=== PATIENT | female | born 1950 | race Hispanic/Latino ===

== ENCOUNTER 2018-03-30 10:29 | Outpatient (CLI) | payer MEDICARE, MEDICAID | END 2018-03-30 10:30 | disposition home or self-care (01) | LOC: BICMAMMO 10:29 | PROVIDERS: ATTEND Family Medicine | DX: Z12.31 Encounter for screening mammogram for malignant neoplasm of breast (principal) | CPT/HCPCS: 77063; 77067 ==

== ENCOUNTER 2018-07-07 13:41 | Outpatient (CLI) | payer MEDICARE, MEDICAID ==
--- NOTE | 2018-07-07 15:20 | ULT ---
BILATERAL RENAL ULTRASOUND: Date: 07/07/18 HISTORY: Chronic hypokalemia. COMPARISON: None. TECHNIQUE: Sagittal and transverse imaging of the kidneys is performed. FINDINGS: Limited evaluation of the cortices. Bilaterally, no hydronephrosis. Right kidney measures 5.2 x 4.5 x 9.7 cm. Left kidney measures 6.2 x 5.1 x 9.7 cm. Anechoic focus in mid pole of right kidney measures 3.1 x 3.3 x 3.1 cm. Anechoic focus in upper pole of left kidney measures 1.3 x 1.5 x 1.3 cm. Urinary bladder is unremarkable. IMPRESSION: 1. No evidence of hydronephrosis. 2. Bilateral renal cortical cysts. POS: ALEX[facility]
== END 2018-07-07 13:42 | disposition home or self-care (01) ==
LOC: BICULT 13:41
PROVIDERS: ATTEND Family Medicine
DX: E87.6 Hypokalemia (principal); N28.1 Cyst of kidney, acquired
CPT/HCPCS: 76770

== ENCOUNTER 2019-04-27 14:26 | Outpatient (CLI) | payer MEDICARE, MEDICAID ==
--- NOTE | 2019-04-27 14:58 | MMO ---
Bilateral MAMMO Bilat Screen [facility]. CLINICAL HISTORY: Patient is 68 years old and is seen for screening. The patient has no family history of breast cancer. The patient has no personal history of cancer. VIEWS: The views performed were: bilateral craniocaudal with tomosynthesis and bilateral mediolateral oblique with tomosynthesis. FILMS COMPARED: The present examination has been compared to prior imaging studies performed at [facility] on 07/02/2009, 04/13/2012, 09/25/2015 and 03/30/2018. MAMMOGRAM FINDINGS: There are scattered fibroglandular densities. There are no suspicious masses, suspicious calcifications, or new areas of architectural distortion. IMPRESSION: THERE IS NO MAMMOGRAPHIC EVIDENCE OF MALIGNANCY. A ROUTINE FOLLOW-UP MAMMOGRAM IN 1 YEAR IS RECOMMENDED. THE RESULTS OF THIS EXAM WERE SENT TO THE PATIENT. ACR BI-RADS Category 1 - Negative MAMMOGRAPHY NOTE: 1. A negative mammogram report should not delay a biopsy if a dominant of clinically suspicious mass is present. 2. Approximately 10% to 15% of breast cancers are not detected by mammography. 3. Adenosis and dense breasts may obscure an underlying neoplasm. Reported by: LOUIS SOUSA MD Electonically Signed: [id number]
--- NOTE | 2019-04-27 17:18 | BD ---
BONE DENSITOMETRY: Date: 04/27/19 HISTORY: Postmenopausal osteoporosis screening. FINDINGS: Lumbar Spine: BMD (g/cm2) L1 0.794 T-Score: -1.8 L2 0.783 T-Score: -2.2 L3 0.715 T-Score: -3.4 L4 0.751 T-Score: -2.8 Total 0.757 T-Score: -2.6 Left Femoral Neck: 0.569 T-Score: -2.5 Total Femur: 0.663 T-Score: -2.3 IMPRESSION: Bone mineral density of the lumbar spine and femoral neck both indicate osteoporosis. POS: [facility]
== END 2019-04-27 14:27 | disposition home or self-care (01) ==
LOC: BICMAMMO 14:26
PROVIDERS: ATTEND Family Medicine
DX: Z12.31 Encounter for screening mammogram for malignant neoplasm of breast (principal); M81.0 Age-related osteoporosis without current pathological fracture
CPT/HCPCS: 77063; 77067; 77080

== ENCOUNTER 2020-06-20 15:26 | Outpatient (CLI) | payer MEDICARE, MEDICAID ==
--- NOTE | 2020-06-20 15:43 | RAD ---
EXAM: Chest 2 views: HISTORY: Covid pneumonia COMPARISON: 01/19/2020 FINDINGS: There is a normal-sized cardiomediastinal silhouette. Diffuse increased interstitial markings are pr esent. Atherosclerotic calcifications are seen in the aorta. There is no evidence of consolidation, mass, or pleural effusion. No acute osseous abnormality. IMPRESSION: No evidence of acute cardiopulmonary disease
== END 2020-06-20 15:27 | disposition home or self-care (01) ==
LOC: BICRAD 15:26
PROVIDERS: ATTEND Family Medicine
DX: J12.9 Viral pneumonia, unspecified (principal)
CPT/HCPCS: 71046

== ENCOUNTER 2020-07-17 13:23 | Outpatient (CLI) | payer MEDICARE, MEDICAID ==
--- NOTE | 2020-07-17 14:53 | MMO ---
Bilateral MAMMO Bilat Screen [facility]. CLINICAL HISTORY: Patient is 69 years old and is seen for screening. The patient has no family history of breast cancer. The patient has no personal history of cancer. VIEWS: The views performed were: bilateral craniocaudal with tomosynthesis and bilateral mediolateral oblique with tomosynthesis. FILMS COMPARED: The present examination has been compared to prior imaging studies performed at [facility] on 04/13/2012, 09/25/2015, 03/30/2018 and 04/27/2019. This study has been interpreted with the assistance of computer-aided detection. MAMMOGRAM FINDINGS: There are scattered fibroglandular densities. There are no suspicious masses, suspicious calcifications, or new areas of architectural distortion. IMPRESSION: THERE IS NO MAMMOGRAPHIC EVIDENCE OF MALIGNANCY. A ROUTINE FOLLOW-UP MAMMOGRAM IN 1 YEAR IS RECOMMENDED. THE RESULTS OF THIS EXAM WERE SENT TO THE PATIENT. ACR BI-RADS Category 1 - Negative MAMMOGRAPHY NOTE: 1. A negative mammogram report should not delay a biopsy if a dominant of clinically suspicious mass is present. 2. Approximately 10% to 15% of breast cancers are not detected by mammography. 3. Adenosis and dense breasts may obscure an underlying neoplasm. Reported by: SILVANO ZUNIGA MD Electonically Signed: [id number]
== END 2020-07-17 13:24 | disposition home or self-care (01) ==
LOC: BICMAMMO 13:23
PROVIDERS: ATTEND Family Medicine
DX: Z12.31 Encounter for screening mammogram for malignant neoplasm of breast (principal)
CPT/HCPCS: 77063; 77067

== ENCOUNTER 2020-12-27 16:21 | Outpatient (CLI) | payer MEDICARE, MEDICAID | END 2020-12-27 16:22 | disposition home or self-care (01) | LOC: BICRAD 16:21 | PROVIDERS: ATTEND Family Medicine | DX: R05 Cough (principal) | CPT/HCPCS: 71046 ==

== ENCOUNTER 2021-08-06 14:47 | Outpatient (CLI) | payer MEDICARE, MEDICAID | END 2021-08-06 14:48 | disposition home or self-care (01) | LOC: BICMAMMO 14:47 | PROVIDERS: ATTEND Family Medicine | DX: Z12.31 Encounter for screening mammogram for malignant neoplasm of breast (principal); Z13.820 Encounter for screening for osteoporosis; M81.0 Age-related osteoporosis without current pathological fracture | CPT/HCPCS: 77063; 77067; 77080 ==

== ENCOUNTER 2022-10-15 08:57 | Outpatient (CLI) | payer MEDICARE, MEDICAID | END 2022-10-15 08:58 | disposition home or self-care (01) | LOC: BICRAD 08:57 | PROVIDERS: ATTEND Family Medicine | DX: M54.59 Other low back pain (principal); W19.XXXA Unspecified fall, initial encounter | CPT/HCPCS: 72100 ==

== ENCOUNTER 2023-10-12 12:53 | Outpatient (CLI) | payer OTHER, MEDICAID | END 2023-10-12 12:54 | disposition home or self-care (01) | LOC: BICMAMMO 12:53 | PROVIDERS: ATTEND Family Medicine | DX: Z13.820 Encounter for screening for osteoporosis (principal); M81.0 Age-related osteoporosis without current pathological fracture; N95.9 Unspecified menopausal and perimenopausal disorder; M85.88 Other specified disorders of bone density and structure, other site | CPT/HCPCS: 77080 ==

== ENCOUNTER 2024-08-04 11:22 | Outpatient (CLI) | payer OTHER, MEDICAID | END 2024-08-04 11:23 | disposition home or self-care (01) | LOC: BICRAD 11:22 | PROVIDERS: ATTEND Family Medicine | DX: U09.9 Post COVID-19 condition, unspecified (principal) | CPT/HCPCS: 71046 ==

== ENCOUNTER 2024-09-15 14:04 | Outpatient (CLI) | payer OTHER, MEDICAID | END 2024-09-15 14:05 | disposition home or self-care (01) | LOC: BICRAD 14:04 | PROVIDERS: ATTEND Family Medicine | DX: M54.6 Pain in thoracic spine (principal); M54.50 Low back pain, unspecified; M47.814 Spondylosis without myelopathy or radiculopathy, thoracic region | CPT/HCPCS: 72070; 72100 ==

== ENCOUNTER 2024-11-23 13:18 | Outpatient (CLI) | payer OTHER, MEDICAID | END 2024-11-23 13:19 | disposition home or self-care (01) | LOC: BICMAMMO 13:18 | PROVIDERS: ATTEND Family Medicine | DX: M81.0 Age-related osteoporosis without current pathological fracture (principal); M85.88 Other specified disorders of bone density and structure, other site | CPT/HCPCS: 77080 ==

== ENCOUNTER 2025-05-22 09:38 | Emergency (ER) | payer OTHER, MEDICAID ==
[2025-05-22] MEDS ORDERED: Ketorolac Tromethamine 30 MG (1 mL) VIAL ONE (10:17)
[2025-05-22 10:38] LABS: #Basophils 0.09 10x3/uL (0.0-0.2); #Eosinophils 0.14 10x3/uL (0.0-0.7); #Monocytes 0.93 10x3/uL (0.11-0.59); #Neutrophils 5.65 10x3/uL (1.40-6.50); %Basophils 1.0 % (0.0-1.0); %Eosinophils 1.5 % (0.0-10.0); %Lymphocytes 25.6 % (21.0-51.0); %Monocytes 10.1 % (0.0-10.0); %Neutrophils 61.0 % (42.0-75.0); Hematocrit 45.1 % (36.0-47.0); Hemoglobin 13.9 g/dL (12.0-16.0); Mean Corpuscular Hemoglobin 26.8 pg (27.0-31.0); Mean Corpuscular Volume 87.1 fL (78.0-98.0); Platelet Count 289 10x3/uL (130-400); Red Blood Cell (RBC) Count 5.18 mill/uL (4.20-5.40); White Blood Cell (WBC) Count 9.25 10x3/uL (4.8-10.8)
[2025-05-22 10:57] LABS: ALT (SGPT) 17 U/L (Less than 34); AST (SGOT) 18 U/L (11-34); Albumin 4.1 g/dL (3.1-4.5); Alkaline Phosphatase 91 U/L (40-110); Anion Gap 15 mmol/L (10-20); BUN (Urea Nitrogen) 12 mg/dL (9.8-20.1); Bilirubin, Total 0.4 mg/dL (0.3-1.2); Calc. Creatinine Clearance 0 mL/min (70-130); Calcium 9.4 mg/dL (7.8-10.44); Carbon Dioxide 22 mmol/L (23-31); Chloride 110 mmol/L (98-107); Globulin 3.6 g/dL (2.4-3.5); Glucose 91 mg/dL (83-110); Potassium 4.0 mmol/L (3.5-5.1); Sodium 143 mmol/L (136-145)
[2025-05-22] MEDS ORDERED: Iopamidol-370 76% 500 ML MDV (1 ML CHARGE) ONE (11:37)
== END 2025-05-22 14:05 | disposition home or self-care (01) ==
LOC: ERS 09:38
DX: H00.034 Abscess of left upper eyelid (principal); H00.014 Hordeolum externum left upper eyelid; I10 Essential (primary) hypertension; J44.9 Chronic obstructive pulmonary disease, unspecified
CPT/HCPCS: 70481; 80053; 85025; 86141; J1885; J2919; 96374; 96375; Q9967